=== PATIENT | male | born 1980 | race Two or more races ===

== ENCOUNTER 2016-11-24 23:49 | Emergency (ER) | payer MEDICAID ==
[~2016-11-24] VITALS: Ht 167.6 cm; Wt 99.8 kg
[2016-11-25 00:09] VITALS: BP 154/103
[2016-11-25] MEDS ORDERED: IBUPROFEN 600 MG TAB PO ONE (01:15)
== END 2016-11-25 01:36 | disposition home or self-care (01) ==
LOC: ER 23:57
DX: S92.142A Displaced dome fracture of left talus, initial encounter for closed fracture (principal); W10.9XXA Fall (on) (from) unspecified stairs and steps, initial encounter; Y93.39 Activity, other involving climbing, rappelling and jumping off; Y99.8 Other external cause status; Y92.89 Other specified places as the place of occurrence of the external cause
CPT/HCPCS: 29515; 73610; 73630

== ENCOUNTER 2024-01-07 09:42 | Emergency (ER) | payer MEDICAID ==
[~2024-01-07] VITALS: Ht 175.3 cm; Wt 102.0 kg
[2024-01-07 10:26] LABS: Urine Bacteria None Seen /hpf (None Seen)
[2024-01-07 10:29] LABS: Basophils # (auto) 0.1 10 ^3/uL (0-0.2); Eosinophils # (auto) 0 10 ^3/uL (0-0.8); Hemoglobin 18.3 g/dL (13.5-17.5); Monocytes # (auto) 1.4 10 ^3/uL (0-1.3); Monocytes % (auto) 7.3 % (0.0-12.0); White Blood Cell 18.8 10^3/uL (4.4-10.8)
[2024-01-07 10:30] LABS: Basophils % (auto) 0.3 % (0.0-2.0); Hematocrit 52.9 % (41.0-53.0); Lymphocytes # (auto) 1.3 10 ^3/uL (0.4-5.4); Lymphocytes % (auto) 6.8 % (10.0-50.0); Mean Corpuscular Hemoglobin 31.5 pg (28.0-32.0); Mean Corpuscular Hgb Conc. 34.6 g/dL (32.0-36.0); Neutrophils % (auto) 85.6 % (37.0-80.0); Nucleated Red Blood Cells % 0.5 %; Red Blood Cells 5.82 10^6/uL (4.5-5.90); Red Cell Distribution Width 13.2 % (11.8-14.3)
[2024-01-07 10:41] LABS: Urine Blood TRACE /uL (Negative); Urine Clarity Clear (Clear); Urine Color Yellow (Yellow); Urine Mucus FEW (None Seen); Urine Protein, UAD 1+ (Negative); Urine Specific Gravity 1.033 (1.001-1.035); Urine Urobilinogen Normal (Negative); Urine WBC 1 /hpf (0 - 3); Urine pH 5.5 (5.0-9.0)
[2024-01-07] MEDS: KETOROLAC TROMETH 30 MG/ML 1ML VIAL IV ONE (10:48)
[2024-01-07] MEDS: SODIUM CHLORIDE 0.9% 1,000 ML IVB ONE (10:49)
[2024-01-07 10:52] LABS: Alanine Aminotransferase 42 U/L (7-40); Albumin 5.3 g/dL (3.2-4.8); Alkaline Phosphatase 85 U/L (46-116); Anion Gap 7 (5-15); Aspartate Aminotransferase 35 U/L (13-40); BUN/Creatinine Ratio 12.8 (10.0-20.0); Blood Urea Nitrogen 25 mg/dL (9-23); Calcium 10.2 mg/dL (8.5-10.1); Carbon Dioxide 26 mmol/L (20-30); Chloride 102 mmol/L (98-107); Glucose 135 mg/dL (74-106); Potassium 4.3 mmol/L (3.5-5.1); Sodium 135 mmol/L (136-145)
[2024-01-07 10:53] LABS: Bilirubin, Total 1.4 mg/dL (0.2-1.0); Total Protein 8.7 g/dL (5.7-8.2)
[2024-01-07 11:00] LABS: INR 1.04 (0.9-1.15); Partial Thromboplastin Time 29.6 SEC (24.5-34.5); Prothrombin Time 10.9 sec (9.3-11.8)
[2024-01-07] MEDS: cloNIDine HCL 0.1 MG TAB PO ONE (11:06)
[2024-01-07 11:10] LABS: Lipase 51 U/L (12-53)
[2024-01-07] MEDS: PIPERACILLIN-TAZOB 3.375GM 100 ML IV ONE (12:01)
[2024-01-07] MEDS ORDERED: PHEN95TA10 PO (12:26)
[2024-01-07] MEDS ORDERED: CEPH500T PO (12:26)
[2024-01-07] MEDS ORDERED: ZOFR4T PO (12:26)
[2024-01-07] MEDS ORDERED: ACET-1304 PO (12:26)
[2024-01-07] MEDS ORDERED: TAMS-35 PO (12:26)
[2024-01-07 13:15] VITALS: BP 142/70; PULSE 99; RESP 20; TEMP 97.8; O2SAT 99
== END 2024-01-07 13:40 | disposition home or self-care (01) ==
LOC: ER 09:42
DX: N23 Unspecified renal colic (principal); Z87.81 Personal history of (healed) traumatic fracture; Z79.899 Other long term (current) drug therapy
CPT/HCPCS: 36415; 74176; 80053; 81001; 83605; 83690; 85025; 85610; 85730; 87040; 96361; 96365; 96375; 99285; J1885; J2543; J7030